=== PATIENT | male | born 1980 | race Caucasian/White ===

== ENCOUNTER → 2019-12-16 11:49 | Outpatient (CLI) | payer OTHER, SELFPAY ==
--- NOTE | ~2019-12-16 | XR_ITS ---
XR lumbar spine 2-3V DATE: 12/16/2019 12:42 INDICATION: Back pain TECHNIQUE: AP, lateral, coned lateral lumbosacral views COMPARISON: None FINDINGS: Normal alignment of the lumbar spine. There is mild degenerative disc disease at L1-2. Kaity ining interspaces are unremarkable. No fracture or bone destruction. The lumbar pedicles are intact. The sacroiliac joints appear normal. IMPRESSION: Mild degenerative disc disease at L1-2 Reviewed, dictated and finalized at location A.
--- NOTE | ~2019-12-16 | XR_ITS ---
XR sacrum coccyx min 2V DATE: 12/16/2019 12:42 INDICATION: Sacral and coccygeal pain TECHNIQUE: AP, angled AP and lateral views COMPARISON: None FINDINGS: No fracture or bone destruction. The sacroiliac joints appear normal. The pubic symphysis i s intact. IMPRESSION: Negative Reviewed, dictated and finalized at location A. IMPRESSION: Negative
== END ==
PROVIDERS: Visit Provider Nurse Practitioner Family
DX: M54.9 Dorsalgia, unspecified (principal); M51.36 Other intervertebral disc degeneration, lumbar region
CPT/HCPCS: 72100; 72220

== ENCOUNTER → 2020-09-20 07:37 | Outpatient (CLI) | payer OTHER, SELFPAY ==
--- NOTE | ~2020-09-20 | XR_ITS ---
XR hand LT min 3V DATE: 09/20/2020 07:46 INDICATION: Left hand pain TECHNIQUE: 3 views COMPARISON: None FINDINGS: No fracture or dislocation, periosteal reaction or bone destruction, erosive change or any significant joint space narrowing is noted. IMPRESSION: Negative Reviewed, dictated and finalized at location B. IMPRESSION: Negative
== END ==
PROVIDERS: PCP Nurse Practitioner Family; Visit Provider Nurse Practitioner Family
DX: M79.642 Pain in left hand (principal)
CPT/HCPCS: 73130

== ENCOUNTER → 2020-11-08 03:11 | Outpatient (CLI) | payer OTHER, SELFPAY ==
[2020-11-08 18:18] LABS: SARS-CoV-2 RNA PCR Negative
== END ==
PROVIDERS: PCP Nurse Practitioner Family; Visit Provider Nurse Practitioner Family
DX: Z20.822 Contact with and (suspected) exposure to COVID-19 (principal)
CPT/HCPCS: C9803; U0003; U0005

== ENCOUNTER 2021-12-30 19:47 | Emergency (ER) | payer OTHER, SELFPAY ==
[2021-12-30 19:49] VITALS: BP 140/83; PULSE 95; RESP 16; TEMP 36.8; O2SAT 100
--- NOTE | 2021-12-30 21:20 | ED.BACK ---
HPI - Back Pain/Injury General Chief Complaint: Back Pain/Injury Stated Complaint: back pain Time Seen by Provider: 12/30/21 21:08 History of Present Illness HPI Narrative: 33-year-old male presenting to the emergency department for evaluation of right lower leg spasms. Patient reports over the last 3 months he has had decrease in station to his right lateral leg. Patient has been following up with a chiropractor. Patient just recently had follow-up with his primary care physician on and an outpatient MRI was ordered. Patient has not yet at this completed. Patient states today he began having worsening leg spasms and presented to the emergency department for evaluation. Patient denies any falls or injuries. Patient denies any lower back pain associated with this. Patient states he has been eating and drinking well denies any change in diet. Patient denies any change in medications. 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 Related Data Allergies Allergy/AdvReac Type Severity Reaction Status Date / Time No Known Allergies Allergy Mild Unverified 11/08/14 12:48 Review of Systems Review of Systems: CONSTITUTIONAL: Denies fever, chills, or sweats. EYES: Denies visual changes, redness, or discharge. ENT: Denies rhinorrhea, congestion, sore throat, or otalgia. CARDIOVASCULAR: Denies chest pain, palpitations, or edema. RESPIRATORY: Denies cough or dyspnea. GASTROINTESTINAL: Denies abdominal pain, nausea, vomiting, or diarrhea. GENITOURINARY: Denies dysuria or hematuria. SKIN: Denies rash or itching. MUSCULOSKELETAL: Right lower extremity twitching/spasm NEUROLOGIC: Denies headache, numbness, or weakness. [facility] Family History Family History (Updated 11/03/14 @ 11:12 by DOCTOR UNKNOWN) Father Family history of osteoarthritis Family history of congestive heart failure Mother Family history of chronic obstructive pulmonary disease Other Carcinoma of colon Family history of allergic disorder Family history of cardiovascular disease Social History Social History Smoking status: Current every day smoker Alcohol intake: current Exam Narrative: APPEARANCE: Well appearing, no pain, no distress, well-nourished. HEAD: normocephalic, atraumatic. EYES: PERRLA/EOMI, conjunctivae clear. NOSE: Normal no drainage NECK: Supple. No adenopathy, no masses. RESPIRATORY: Airway patent, respirations nonlabored. Clear to auscultation bilaterally, no rales, rhonchi, wheezing. CARDIOVASCULAR: Regular rate and rhythm without murmurs rubs or gallops. ABDOMINAL: Soft, nontender, nondistended, normal bowel sounds MUSCULOSKELETAL: Moves all extremities. Strength/ROM intact, No edema, No calf tenderness. NEURO: Alert. Cranial nerves II through XII intact. Grossly intact. Patient intact to light touch bilaterally. Brisk reflexes bilaterally. Normal heel stand and standing on toes. SKIN: Warm, dry. Normal Color Course Course Emergency Course: Patient does have an outpatient MRI that he is going to schedule. Patient was encouraged to have close follow-up with his primary care physician and was also provided follow-up with neurology. Patient and family were comfortable with the plan for discharge and follow-up. Vital Signs Vital signs: Vital Signs Temperature 98.3 F 12/30/21 19:49 Pulse Rate 95 12/30/21 19:49 Respiratory Rate 16 12/30/21 19:49 Blood Pressure 140/83 12/30/21 19:49 Pulse Oximetry 100 12/30/21 19:49 Oxygen Delivery Room Air 12/30/21 19:49 Temperature 98.3 F 12/30/21 19:49 Pulse Rate 84 12/30/21 22:56 Respiratory Rate 16 12/30/21 22:56 Blood Pressure 140/74 12/30/21 22:56 Pulse Oximetry 100 12/30/21 22:56 Oxygen Delivery Room Air 12/30/21 19:49 MDM - Back Pain/Injury Lab Data Result diagrams: 12/30/21 21:30 12/30/21 21:30 Labs: Lab Results 12/30/21 12/30/21 Range/Units 21:30 21:30
[2021-12-30] MEDS: CYCLOBENZAPRINE HCL 10 MG TABLET PO (21:26)
[2021-12-30 21:42] LABS: Basophils Absolute Auto 0.1 K/mm3 (0.0-0.1); Basophils Percent Auto 0.7 % (0.2-1.2); Eosinophils Absolute Auto 0.3 K/mm3 (0-0.3); Hematocrit 45.9 % (42.0-52.0); Hemoglobin 16.6 g/dL (14.0-18.0); Immature Granulocyte Absolute 0.04 K/mm3 (0.00-0.031); Immature Granulocyte Percent A 0.4 % (0-0.5); Lymphocytes Absolute Auto 3.46 K/mm3 (0.9-3.2); Mean Corpuscular HGB Conc 36.2 g/dl (32-36); Mean Corpuscular Hemoglobin 32.4 pg (26-34); Mean Corpuscular Volume 89.6 fl (80-100); Monocytes Absolute Auto 0.4 K/mm3 (0.1-0.6); Monocytes Percent Auto 4.2 % (2.6-8.5); Neutrophils Absolute Auto 6.2 K/mm3 (1.3-6.7); Neutrophils Percent Auto 58.7 % (45.5-73.1); Platelet Count Result 244 k/mm3 (150-375); Red Blood Count 5.12 M/mm3 (4.6-6.20); White Blood Count 10.5 K/mm3 (4.5-10.0)
[2021-12-30 21:56] LABS: Alanine Aminotransferase 31 U/L (6-50); Albumin Level 4.9 g/dL (3.5-5.1); Alkaline Phosphatase 62 U/L (38-126); Anion Gap 19 mmol/L (8-16); Aspartate Amino Transferase 28 U/L (17-59); Bilirubin,Total 0.3 mg/dL (0.2-1.3); Blood Urea Nitrogen 9 mg/dL (9-20); Calcium 8.8 mg/dL (8.4-10.2); Carbon Dioxide 21 mmol/L (22-30); Chloride 100 mmol/L (98-107); Estimated CRCL calculation 138 ml/min; Estimated Glomerular Filt Rate > 60; Glucose 104 mg/dL (65-110); Potassium 3.8 mmol/L (3.4-5.0); Sodium 140 mmol/L (137-145)
[2021-12-30] MEDS: SODIUM CHLORIDE 0.9% IV 1,000 ML 999 ML IV CONT (22:14)
[2021-12-30 22:56] VITALS: BP 140/74; PULSE 84; RESP 16; O2SAT 100
== END 2021-12-30 22:58 | disposition home or self-care (01) ==
PROVIDERS: Emergency Provider Emergency Medicine; PCP Nurse Practitioner Family
DX: M62.838 Other muscle spasm (principal); F17.200 Nicotine dependence, unspecified, uncomplicated
CPT/HCPCS: 36415; 80053; 85025; 96360; 99283; A9270; J7030

== ENCOUNTER 2023-02-21 12:45 | Outpatient (CLI) | payer OTHER, SELFPAY ==
--- NOTE | ~2023-02-21 | MR_ITS ---
EXAMINATION: MR lumbar spine wo con DATE: 02/21/2023 13:26 INDICATION: Right-sided numbness. TECHNIQUE: Magnetic resonance imaging (MRI) of the lumbar spine was performed without intravenous con trast. Sequences included sagittal T2-weighted FSE, sagittal T2-weighted FS FSE, sagittal T1-weighted FSE, and axial T2-weighted FSE. COMPARISON: Lumbar spine radiographs 12/16/2019 FINDINGS: Bone alignment is normal. There is mild chronic anterior wedging of T12 and L1 vertebral camilo dies associated with Schmorl's nodes. There are chronic bilateral L5 pars defects. There is mildly de creased disc height at L5-S1. The distal spinal cord signal intensity is normal. The conus medullaris is at L1. There is developmental osseous central canal stenosis in lumbar spine. The following disc levels are specifically discussed: L1-L2: The disc does not extend beyond the endplate margin. There is no facet joint osteoarthritis. T here is no neural foraminal stenosis. There is no central canal stenosis. L2-L3: The disc is bulging. There is no facet joint osteoarthritis. There is mild bilateral neural fo raminal stenosis. There is mild central canal stenosis. L3-L4: The disc is bulging. There is mild bilateral facet joint osteoarthritis. There is moderate lo ateral neural foraminal stenosis. There is mild central canal stenosis. L4-L5: The disc is bulging. There is mild left facet joint osteoarthritis. There is mild bilateral ne ural foraminal stenosis. There is no central canal stenosis. L5-S1: The disc is bulging with superimposed left foraminal extrusion. There is mild bilateral facet joint osteoarthritis. There is mild right and moderate left neural foraminal stenosis. There is mild central canal stenosis. IMPRESSION: 1. 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 2. Moderate lumbar spondylosis. Reviewed, dictated and finalized at location E. SERVICE SUPERVISOR
--- NOTE | ~2023-02-21 | MR_ITS ---
EXAMINATION: MR cervical spine wo con DATE: 02/21/2023 13:23 INDICATION: Posterior cervical spinal fusion. TECHNIQUE: Magnetic resonance imaging (MRI) of the cervical spine was performed without intravenous c ontrast. COMPARISON: Cervical spine radiographs 11/17/2013 FINDINGS: There is kyphosis of cervical spine. There are changes of disc replacement at C5-C6 and C6- C7. Vertebral body heights are normal. Intervertebral disc heights are normal. There is increased T2- weighted signal intensity in the spinal cord at C6-C7, consistent with myelomalacia. The following di sc levels are specifically discussed: C2-C3: The disc does not extend beyond the endplate margin. There is mild bilateral uncovertebral joseph nt osteoarthritis. There is mild bilateral facet joint osteoarthritis. There is no neural foraminal s tenosis. There is no central canal stenosis. C3-C4: The disc does not extend beyond the endplate margin. There is mild bilateral uncovertebral joseph nt osteoarthritis. There is mild bilateral facet joint osteoarthritis. There is no neural foraminal s tenosis. There is no central canal stenosis. C4-C5: The disc does not extend beyond the endplate margin. There is severe right and mild left uncov ertebral joint osteoarthritis. There is no facet joint osteoarthritis. There is mild bilateral neural foraminal stenosis. There is no central canal stenosis. C5-C6: There is moderate bilateral uncovertebral joint hypertrophy. There is no facet joint osteoarth ritis. There is mild right neural foraminal stenosis. There is mild central canal stenosis with ventr al indentation of the spinal cord. C6-C7: There is moderate bilateral uncovertebral joint hypertrophy. There is no facet joint osteoarth ritis. There is no neural foraminal stenosis. There is mild central canal stenosis with ventral inden tation of the spinal cord. C7-T1: The disc does not extend beyond the endplate margin. There is no uncovertebral joint osteoarth ritis. There is moderate bilateral facet joint osteoarthritis. There is mild bilateral neural foramin al stenosis. There is no central canal stenosis. IMPRESSION: 1. 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 2. Disc replacements at C5-C6 and C6-C7. 3. Mild cervical spondylosis. Reviewed, dictated and finalized at location E. [employer] GRAD
== END 2023-02-21 12:46 ==
LOC: MICIMG 12:46
PROVIDERS: PCP Neurological Surgery; Visit Provider Neurological Surgery
DX: M43.06 Spondylolysis, lumbar region (principal); M43.02 Spondylolysis, cervical region; M53.86 Other specified dorsopathies, lumbar region; G95.89 Other specified diseases of spinal cord; Z98.1 Arthrodesis status
CPT/HCPCS: 72141; 72148

== ENCOUNTER 2024-02-20 19:43 | Emergency (ER) | payer OTHER, SELFPAY ==
--- NOTE | ~2024-02-20 | CT_ITS ---
CT brain wo con Ordering provider: Miles Colon DO History: 43 years Male with . head injury with LOC . Comparison: None. Technique: CT of the head without contrast. Radiation reduction technique utilized.The dose-length product was 605.33 mGy-cm. FINDINGS: BRAIN PARENCHYMA AND CSF SPACES: No midline shift, mass effect or hemorrhage. The brain parenchyma a nd CSF spaces are otherwise normal. VISUALIZED PARANASAL SINUSES: Bilateral ethmoid sinus disease. MASTOIDS: Well aerated. BONES: The bones appear intact. SOFT TISSUES: Visualized nasopharynx is normal. Superficial soft tissues are normal. IMPRESSION: No acute intracranial findings. Reviewed, dictated and finalized at location A. MAINTENANCE WORKER
--- NOTE | ~2024-02-20 | CT_ITS ---
CT cervical spine wo con Ordering provider: Miles Colon DO History: . fall with neck pain . Comparison: None. Technique: CT of the cervical spine was performed without contrast. Sagittal and coronal reformatted images were also obtained and reviewed. Automated exposure control and iterative reconstruction valdemar hnique were employed. The dose-length product was 605.33 mGy-cm. FINDINGS: VERTEBRAE: No subluxation or acute fracture. The occipital condyles are intact. DISC SPACES: Disc spacers seen at the level of C5-C6 and C6-C7. Other disc spaces are normal. Posteri or osteophytes are seen at the same levels. Uncovertebral joint osteoarthritic changes are also seen at the 2 levels. PARASPINOUS SOFT TISSUES: Normal. IMPRESSION: No acute osseous abnormality cervical spine. Reviewed, dictated and finalized at location A. GENCY SPECIALIST
[2024-02-20 19:45] VITALS: O2SAT 100
[2024-02-20 19:49] VITALS: BP 134/96; PULSE 74; RESP 16; O2SAT 96
[2024-02-20 19:50] VITALS: PULSE 75
--- NOTE | 2024-02-20 19:55 | ECG_ITS ---
Test Date: 2024-02-20 20:28:47 Measurements Intervals [place] Rate: 68 P: 61 ME: 143 QRS: 24 QRSD: 108 T: 13 QT: 390 QTc: 417 Interpretive Statements SINUS RHYTHM INCOMPLETE RIGHT BUNDLE BRANCH BLOCK [90+ ms QRS DURATION, TERMINAL R IN V1/V2, 40+ ms S IN I/aVL/V4/V5/V6] No previous ECG available for comparison Electronically Signed On 02-21-2024 12:29:02 GRINDER OPERATOR TOOL by Janay Varela M.D.
--- NOTE | 2024-02-20 20:01 | ED_ITS ---
HPI - General Adult General Chief complaint: Syncope Stated complaint: syncope Time Seen by Provider: 02/20/24 19:47 History of Present Illness HPI narrative: Keon is a 43M with a PMH of cervical neck degeneration, frequent etoh use that presented to the ED after an episode of syncope. He was out with friends having some drinks when all of a sudden he blacked out and fell backwards and was out for quick second. He fell back and hit his head and has a neck ache. He immediately came to with no confusion. There was no CP, palpitations, or dyspnea preceding the incident. Related Data Home Medications ?Medication ?Instructions ?Recorded ?Confirmed ?Last Taken ?Type tadalafil 10 mg tablet (Cialis) 10 mg PO DAILY PRN sexual activity 04/17/23 02/20/24 Unknown History Allergies Allergy/AdvReac Type Severity Reaction Status Date / Time No Known Allergies Allergy Mild Unverified 04/17/23 08:11 Review of Systems 2 Review of Systems: All systems reviewed & are unremarkable except as noted in HPI and below PMFSH Past Medical History Medical History Erectile dysfunction Cervical stenosis of spinal canal Family history of hemochromatosis Spondylosis Lumbar pain Garcia-Shyam disease Left inguinal hernia Surgical History Surgical History S/P cervical disc replacement C5 - C7 Fed. 2022 Family History Family History Father Family history of osteoarthritis Family history of congestive heart failure Heart disease Alcoholism Mother Family history of chronic obstructive pulmonary disease Alcoholism Sibling Depression Other Carcinoma of colon Family history of allergic disorder Family history of cardiovascular disease Social History Social History Smoking packs per day: 1.5 Smoking cigarettes per day: 30.0 Years smoked: 9 Smoking pack-years: 13.50 Smoking status: Current every day smoker Tobacco type: cigarettes Alcohol intake: current Alcohol use details: 5 - 12 beers a day Substance use: never Substance use type: does not use Lack of Transportation: No Lack of Food: Never True Current Housing: I Have Housing Concerned About Future Housing: No Difficulty Paying Gas/Electric Bills: No Difficulty Paying for Meds: No Currently Unemployed: No Education: High School Diploma/GED Difficulty w/ Childcare or Family Care: No Living arrangements: with family Occupation/Education: occupation Gender identity (if verbalized by the patient): Male Exam 2 Const: General: cooperative, healthy appearing, comfortable, no acute distress, well developed, alert, awake and Physically active O rientation/consciousness: oriented to person, oriented to place and oriented to time HENMT: Head: normal to inspection, normocephalic and atraumatic Ears: h earing grossly normal bilaterally and external ears normal Face/Nose/Sinus: N ormal external nose present Eyes: General: appearance normal, both eyes and all related structures P eriorbital: periorbital findings normal Sclera: sclerae normal Pupils: E qual, round and reactive pupils present Neck: Neck: normal visual inspection Chest: Chest palpation & inspection: normal inspection of the chest Resp: Effort & Inspection: normal respiratory effort, able to speak in complete sentences and no respiratory distress Auscultation: clear to auscultation bilaterally Cardio: Jugular venous distension: no JVD Rate: regular rate Rhythm: r egular rhythm GI: Inspection: normal to inspection GI Palp: Yes Soft to palpation A uscultation: normal bowel sounds Skin: General skin exam: normal color and no rashes or lesions noted Neuro: General: oriented to person, oriented to place and oriented to time Cranial nerves: Yes Equal, round and reactive pupils present Speech: normal speech Gait exam (Neuro): Normal gait present Other: CNII-XII intact as tested. Symmetrical strength throughout the upper extremities Extrem: General: normal to inspection Course Course Emergency Course: Ordered labs, CTs, EKG EKG showed NSR with a rate of 68, RBBB, and no ST elevation/depression CT brain wo con Ordering provider: Miles Colon DO History: 43 years Male with . head injury with LOC . Comparison: None. Technique: CT of the head without contrast. Radiation reduction technique utilized.The dose-length product was 605.33 mGy- cm. FINDINGS: BRAIN PARENCHYMA AND CSF SPACES: No midline shift, mass effect or hemorrhage. The brain parenchyma and CSF spaces are otherwise normal. VISUALIZED PARANASAL SINUSES: Bilateral ethmoid sinus disease. MASTOIDS: Well aerated. BONES: The bones appear intact. SOFT TISSUES: Visualized nasopharynx is normal. Superficial soft tissues are normal. IMPRESSION: No acute intracranial findings. CT cervical spine wo con Ordering provider: Miles Colon DO History: . fall with neck pain . Comparison: None. Technique: CT of the cervical spine was performed without contrast. Sagittal and coronal reformatted images were also obtained and reviewed. Automated exposure control and iterative reconstruction technique were employed. The dose- length product was 605.33 mGy-cm. FINDINGS: VERTEBRAE: No subluxation or acute fracture. The occipital condyles are intact. DISC SPACES: Disc spacers seen at the level of C5-C6 and C6-C7. Other disc spaces are normal. Posterior osteophytes are seen at the same levels. Uncovertebral joint osteoarthritic changes are also seen at the 2 levels. PARASPINOUS SOFT TISSUES: Normal. IMPRESSION: No acute osseous abnormality cervical spine. Labs showed an etoh of 224 but all labs were otherwise unremarkable. Patient is in low risk by the [place] Syncope rule so he will be discharged to f/u with his PCP. Vital Signs Vital signs: Vital Signs Pulse Oximetry 100 02/20/24 19:45 Pulse Rate 75 02/20/24 19:50 Respiratory Rate 16 02/20/24 19:49 Blood Pressure 134/96 H 02/20/24 19:49 Pulse Oximetry 96 02/20/24 19:49 Oxygen Delivery Room Air 02/20/24 19:49 Medical Decision Making Vital Signs Vital Signs: Vital Signs Pulse Oximetry 100 02/20/24 19:45 Pulse Rate 75 02/20/24 19:50 Respiratory Rate 16 02/20/24 19:49 Blood Pressure 134/96 H 02/20/24 19:49 Pulse Oximetry 96 02/20/24 19:49 Oxygen Delivery Room Air 02/20/24 19:49 Lab Data 02/20/24 20:16 02/20/24 20:16 Labs: Lab Results 02/20/24 Range/Units 20:16 WBC 11.2 H (4.8-10.8) K/mm3 RBC 5.23 (4.70-6.10) M/mm3 Hgb 15.7 (14.0-18.0) g/dL Hct 46.0 (40.0-54.0) % MCV 88.0 (78.0-102.0) fL MCH 30.0 (27.0-31.0) pg MCHC 34.1 (32-36) g/dL RDW 12.0 (11.6-14.4) % Plt Count 254 (150-420) K/mm3 MPV 8.7 (8.7-11.0) fl Immature Gran % (Auto) 0.4 H (0.0-0.0) % Neut % (Auto) 51.8 (50.0-70.0) % Lymph % (Auto) 34.9 (18.0-42.0) % [place] % (Auto) 7.3 (2.0-11.0) % Eos % (Auto) 4.7 (1.0-6.0) % Baso % (Auto) 0.9 (0.0-1.0) % Lymph # (Auto) 3.90 (1.10-4.50) K/mm3 [place] # (Auto) 0.81 (0.10-0.90) K/mm3 Eos # (Auto) 0.52 H (0.02-0.50) K/mm3 Baso # (Auto) 0.10 (0.00-0.10) K/mm3 Abs Immat Gran (auto) 0.05 H (0.00-0.00) K/mm3 Absolute Neuts (auto) 5.78 (1.70-7.20) K/mm3 Absolute Nucleated RBC 0.00 (0.00-0.00) K/mm3 Nucleated RBC % 0.0 (0-0.0) % PT Pending INR Pending Sodium Pending Potassium Pending Chloride Pending Carbon Dioxide Pending Anion Gap Pending BUN Pending Creatinine Pending Estim Creat Clear Calc Pending Estimated GFR Pending Glucose Pending Calculated Osmolality Pending Calcium Pending Magnesium Pending Total Bilirubin Pending AST Pending ALT Pending Alkaline Phosphatase Pending Troponin I Pending NT-Pro-B Natriuret Pep Pending Total Protein Pending Albumin Pending Ethyl Alcohol Pending Discharge Plan Discharge Clinical Impression: Syncope and collapse, Alcohol intoxication Patient Language: Emirati Prescriptions: No Action tadalafil [Cialis] 10 mg tablet 10 mg PO DAILY PRN (Reason: sexual activity) Rx Instructions: administer approximately 30min before sexual activity; do not use more than 1 dose per 24hrs Follow-up/Referrals: UNKNOWN,DOCTOR [Non-Staff] -
[2024-02-20 20:19] LABS: Basophils Percent Auto 0.9 % (0.0-1.0); Eosinophils Absolute Auto 0.52 K/mm3 (0.02-0.50); Eosinophils Percent Auto 4.7 % (1.0-6.0); Hemoglobin 15.7 g/dL (14.0-18.0); Immature Granulocyte Absolute 0.05 K/mm3 (0.00-0.00); Immature Granulocyte Percent A 0.4 % (0.0-0.0); Lymphocytes Percent Auto 34.9 % (18.0-42.0); Mean Corpuscular HGB Conc 34.1 g/dL (32-36); Mean Platelet Volume 8.7 fl (8.7-11.0); Monocytes Absolute Auto 0.81 K/mm3 (0.10-0.90); Monocytes Percent Auto 7.3 % (2.0-11.0); Neutrophils Absolute Auto 5.78 K/mm3 (1.70-7.20); Neutrophils Percent Auto 51.8 % (50.0-70.0); Platelet Count Result 254 K/mm3 (150-420); Red Blood Count 5.23 M/mm3 (4.70-6.10); White Blood Count 11.2 K/mm3 (4.8-10.8)
[2024-02-20 20:32] LABS: INR 0.9; Prothrombin Time 10.4 Seconds (9.50-12.1)
[2024-02-20 20:42] LABS: Alanine Aminotransferase 29 U/L (16-63); Albumin Level 4.2 g/dL (3.4-5.0); Alkaline Phosphatase 75 U/L (46-116); Anion Gap 9 mmol/L (4-12); Aspartate Amino Transferase 15 U/L (15-37); Bilirubin,Total 0.4 mg/dL (0.00-1.00); Blood Urea Nitrogen 10 mg/dL (7-18); Calcium 8.6 mg/dL (8.5-10.1); Carbon Dioxide 28 mmol/L (21-32); Chloride 99 mmol/L (98-108); Estimated CRCL calculation 98 ml/min; Estimated Glomerular Filt Rate > 60; Glucose 95 mg/dL (70-99); Magnesium 1.9 mg/dL (1.8-2.4); NT Pro B Type Natriuretic Pept 27 pg/mL (0-125); Osmolality Calculated 281 mOsm/kg (285-295); Potassium 4.1 mmol/L (3.5-5.1); Sodium 136 mmol/L (136-145); Total Protein 7.3 g/dL (6.4-8.2)
[2024-02-20 20:43] LABS: Troponin I < 4.0 ng/L (0.00-60.4)
[2024-02-20 20:44] LABS: Ethanol 224 mg/dL (0-6)
[2024-02-20 20:57] VITALS: BP 117/72; PULSE 65; RESP 18; TEMP 36.6; O2SAT 98
== END 2024-02-20 20:57 | disposition home or self-care (01) ==
LOC: CHSED 20:25
PROVIDERS: Emergency Provider Family Medicine; PCP Nurse Practitioner Family
DX: R55 Syncope and collapse (principal); F17.210 Nicotine dependence, cigarettes, uncomplicated; F10.120 Alcohol abuse with intoxication, uncomplicated
CPT/HCPCS: 36415; 70450; 72125; 80053; 82077; 83735; 83880; 84484; 85025; 85610; 93005; 99284

== ENCOUNTER 2024-11-11 06:22 | Emergency (ER) | payer OTHER, SELFPAY ==
--- NOTE | ~2024-11-11 | XR_ITS ---
Examination: XR knee RT 3V, XR tibia fibula RT 2V Clinical History: KNEE STUCK IN LADDER/MEDIAL HEMATOMA/DENIES PAIN Comparison: None Technique: 4 views right knee, 2 views right tibia fibula 4 films Findings/impression: Right knee: 1. No fracture, dislocation, or effusion. Right tibia fibula: 1. No fracture. Reviewed, dictated and finalized at location R.
[2024-11-11 06:29] VITALS: BP 136/96; PULSE 80; RESP 18; TEMP 36.6; O2SAT 100
--- NOTE | 2024-11-11 06:43 | ED_ITS ---
HPI - Extremity Injury (Lower) General Chief Complaint: Extremity Injury, Lower Stated Complaint: leg pain Time Seen by Provider: 11/11/24 06:32 Source: patient Mode of arrival: ambulatory Limitations: no limitations History of Present Illness HPI Narrative: 43 years old white male drove himself to the emergency room complaining of right lower leg trauma yesterday patient was on ladder, 5 ft above the ground, lost his balance, fell, got his right lower leg tangled up I during the fall. Complaining of pain at the medial side of right lower leg. Patient denies other injuries. Related Data Home Medications ?Medication ?Instructions ?Recorded ?Confirmed ?Last Taken ?Type tadalafil 10 mg tablet (Cialis) 10 mg PO DAILY PRN sex ual activity 04/17/23 08/27/24 Unknown History Allergies Allergy/AdvReac Type Severity Reaction Status Date / Time No Known Allergies Allergy Mild Verified 11/11/24 06:25 Review of Systems Review of Systems: All systems reviewed & are unremarkable except as noted in HPI and below PMFSH Past Medical History Medical History Erectile dysfunction Cervical stenosis of spinal canal Family history of hemochromatosis Spondylosis Lumbar pain Garcia-Shyam disease Left inguinal hernia Surgical History Surgical History S/P cervical disc replacement C5 - C7 Fed. 2022 Family History Family History Father Family history of osteoarthritis Family history of congestive heart failure Heart disease Alcoholism Mother Family history of chronic obstructive pulmonary disease Alcoholism Sibling Depression Other Carcinoma of colon Family history of allergic disorder Family history of cardiovascular disease Social History Social History Smoking packs per day: 1.5 Smoking cigarettes per day: 30.0 Years smoked: 9 Smoking pack-years: 13.50 Smoking status: Current every day smoker Tobacco type: cigarettes Alcohol intake: current Alcohol use details: 5 - 12 beers a day Substance use: never Substance use type: does not use Do You Feel Safe in your Home?: Yes Lack of Transportation: No Lack of Food: Never True Current Housing: I Have Housing Concerned About Future Housing: No Difficulty Paying Gas/Electric Bills: No Difficulty Paying for Meds: No Currently Unemployed: No Education: High School Diploma/GED Difficulty w/ Childcare or Family Care: No Living arrangements: with family Occupation/Education: occupation Gender identity (if verbalized by the patient): Male Exam Narrative: General appearance: Well-developed, well-nourished Skin: Normal color Head: Normocephalic, nontraumatic Eyes: Clear conjunctiva ENT: Oropharynx normal, ears normal, nose normal Neck: Supple, nontender Chest and respiratory: Airway patent, no respiratory distress, no accessory muscle use Heart: Regular rate/rhythm Abdomen: Soft, nontender, no organomegaly, quiet bowel sounds Vascular: Normal peripheral pulses, normal capillary refill. Musculoskeletal: Right lower leg showed abrasion anteriorly, diffuse tenderness medially otherwise no deformity, no swelling, no bruises Neurologic: Alert and oriented ?3, MANUFACTURING MANAGEMENT ASSOCIATE is normal as tested, no gross motor deficit Course Vital Signs Vital signs: Vital Signs Temperature 36.6 C 11/11/24 06:29 Pulse Rate 80 11/11/24 06:29 Respiratory Rate 18 11/11/24 06:29 Blood Pressure 136/96 H 11/11/24 06:29 Pulse Oximetry 100 11/11/24 06:29 Oxygen Delivery Room Air 11/11/24 06:29 Temperature 36.6 C 11/11/24 06:29 Pulse Rate 80 11/11/24 06:29 Respiratory Rate 18 11/11/24 06:29 Blood Pressure 136/96 H 11/11/24 06:29 Pulse Oximetry 100 11/11/24 06:29 Oxygen Delivery Room Air 11/11/24 06:29 Critical Care Time Critical Care Time Critical Care Time: No Discharge Plan Discharge Clinical Impression: Contusion of leg, right Patient Disposition: Home Condition: Stable Instructions: Leg Pain (ED) Additional Instructions: Return if symptoms are worsening , call your family physician for appointment, take Tylenol, ibuprofen as as needed for aches and pain, continue home medications. Patient Language: Korean Prescriptions: No Action tadalafil [Cialis] 10 mg tablet 10 mg PO DAILY PRN (Reason: sexual activity) Rx Instructions: administer approximately 30min before sexual activity; do not use more than 1 dose per 24hrs Follow-up/Referrals: Soífa Ng APRN [Primary Care Provider, Family Practice]
--- NOTE | 2024-11-11 06:58 | PC.NURSE ---
ERP aware of pt's vitals. No new orders.
[2024-11-11 07:02] VITALS: BP 135/85
== END 2024-11-11 07:02 | disposition home or self-care (01) ==
PROVIDERS: Emergency Provider Emergency Medicine; PCP Nurse Practitioner Family
DX: S80.11XA Contusion of right lower leg, initial encounter (principal); F17.210 Nicotine dependence, cigarettes, uncomplicated; W11.XXXA Fall on and from ladder, initial encounter
CPT/HCPCS: 73562; 73590; 99283